=== PATIENT | male | born 1980 | race Caucasian/White ===

== ENCOUNTER 2018-06-09 10:41 | Inpatient (IN) | payer OTHER ==
[2018-06-09 12:13] LABS: HEMATOCRIT 43.8 % (42.0-52.0); HEMOGLOBIN 15.5 g/dl (13.5-17.5); MEAN CORPUSCULAR HEMOGLOBIN 33.8 pg (27.0-33.0); MEAN CORPUSCULAR HGB CONC 35.4 g/dl (32.0-36.5); MEAN CORPUSCULAR VOLUME 95.6 fl (80.0-96.0); PLATELET COUNT, AUTOMATED 173 10^3/uL (150-450); RED BLOOD COUNT 4.58 10^6/uL (4.30-6.10)
[2018-06-09 12:45] LABS: AMPHETAMINES LEVEL URINE NEGATIVE (NEGATIVE); BARBITURATES URINE NEGATIVE (NEGATIVE); BENZODIAZEPINES URINE NEGATIVE (NEGATIVE); CANNABINOIDS URINE NEGATIVE (NEGATIVE); COCAINE METABOLITE URINE NEGATIVE (NEGATIVE); METHADONE URINE NEGATIVE (NEGATIVE); OPIATES URINE NEGATIVE (NEGATIVE); PHENCYCLIDINE URINE NEGATIVE (NEGATIVE)
[2018-06-09 12:52] LABS: ALBUMIN 4.1 GM/DL (3.2-5.2); ALBUMIN/GLOBULIN RATIO 1.28 (1.00-1.93); ALKALINE PHOSPHATASE 82 U/L (45-117); ALT/SGPT 43 U/L (12-78); ANION GAP 10 MEQ/L (8-16); AST/SGOT 39 U/L (7-37); BILIRUBIN,DIRECT 0.1 MG/DL (0.0-0.2); BILIRUBIN,TOTAL 0.5 MG/DL (0.2-1.0); BLOOD UREA NITROGEN 11 MG/DL (7-18); CALCIUM LEVEL 8.6 MG/DL (8.5-10.1); CARBON DIOXIDE LEVEL 27 MEQ/L (21-32); CHLORIDE LEVEL 105 MEQ/L (98-107); CREATININE FOR GFR 0.88 MG/DL (0.70-1.30); ETHYL ALCOHOL (ETHANOL) 0.102 % (0.000-0.010); GLOMERULAR FILTRATION RATE > 60.0 (>60); GLUCOSE, FASTING 86 MG/DL (70-100); POTASSIUM SERUM 4.2 MEQ/L (3.5-5.1); SALICYLATE LEVEL < 1.7 MG/DL (5.0-30.0); SODIUM LEVEL 142 MEQ/L (136-145); THYROID STIMULATING HORMONE 0.684 uIU/ML (0.358-3.740); TOTAL PROTEIN 7.3 GM/DL (6.4-8.2)
[2018-06-09 13:12] LABS: ACETAMINOPHEN LEVEL < 2.0 UG/ML (10.0-30.0)
[2018-06-09] MEDS ORDERED: MOM 30ML SUSPENSION UDC PO (16:30)
[2018-06-09] MEDS ORDERED: MAALOX 30 ML SUSP *UDC PO (16:30)
[2018-06-09] MEDS ORDERED: hydrOXYzine 50 MG TAB PO (16:30)
[2018-06-09] MEDS ORDERED: traZODone 50 MG TAB PO (16:30)
[2018-06-09] MEDS ORDERED: ACETAMINOPHEN TAB 650MG DOSE (2X325MG) PO (16:30)
[2018-06-09] MEDS: traZODone 50 MG TAB PO (22:44)
[2018-06-09] MEDS: IBUPROFEN 600 MG TAB PO (22:44)
[2018-06-10] MEDS: BACITRACIN OINT 30GM TOP ×2 (08:27→23:11)
[2018-06-10] MEDS: SERTRALINE HCL 50 MG TAB PO (08:28)
[2018-06-10] MEDS: NICOTINE 21MG/24HR 1 EA TRANSDERMAL TD (08:51)
[2018-06-10] MEDS: buPROPion **XL** TABLET 150MG (WELLBUTRIN XL) PO (12:55)
[2018-06-10] MEDS: PRAZOSIN 1 MG CAP PO (23:11)
[2018-06-10] MEDS: traZODone 50 MG TAB PO (23:12)
[2018-06-11] MEDS: NICOTINE 21MG/24HR 1 EA TRANSDERMAL TD (08:27)
[2018-06-11] MEDS: BACITRACIN OINT 30GM TOP ×2 (08:27→23:33)
[2018-06-11] MEDS: buPROPion **XL** TABLET 150MG (WELLBUTRIN XL) PO (08:27)
[2018-06-11] MEDS: traZODone 50 MG TAB PO (23:33)
[2018-06-11] MEDS: PRAZOSIN 1 MG CAP PO (23:35)
[2018-06-12] MEDS: NICOTINE 21MG/24HR 1 EA TRANSDERMAL TD (08:29)
[2018-06-12] MEDS: BACITRACIN OINT 30GM TOP ×2 (08:30→21:00)
[2018-06-12] MEDS: buPROPion **XL** TABLET 150MG (WELLBUTRIN XL) PO (08:30)
[2018-06-12] MEDS: PRAZOSIN 1 MG CAP PO (21:12)
[2018-06-12] MEDS: traZODone 50 MG TAB PO (22:19)
[2018-06-13] MEDS: buPROPion **XL** TABLET 150MG (WELLBUTRIN XL) PO (08:16)
[2018-06-13] MEDS: NICOTINE 21MG/24HR 1 EA TRANSDERMAL TD (08:17)
[2018-06-13] MEDS: BACITRACIN OINT 30GM TOP (08:17)
== END 2018-06-13 12:20 | disposition home or self-care (01) | DRG 882 ==
LOC: M ED 10:41 → M ED INP 17:27 → M PSY 19:56
DX: F43.23 Adjustment disorder with mixed anxiety and depressed mood (principal); F10.10 Alcohol abuse, uncomplicated; Z63.5 Disruption of family by separation and divorce; Z91.82 Personal history of military deployment; Z79.899 Other long term (current) drug therapy; F17.210 Nicotine dependence, cigarettes, uncomplicated; S00.412A Abrasion of left ear, initial encounter; X58.XXXA Exposure to other specified factors, initial encounter; Y92.9 Unspecified place or not applicable